=== PATIENT | female | born 2000 | race Caucasian/White ===

== ENCOUNTER 2022-06-02 02:01 | Emergency (ER) | payer OTHER, SELFPAY ==
[2022-06-02 02:02] VITALS: BP 128/80; PULSE 87; RESP 17; TEMP 36.8; O2SAT 97; BMI 40.4
--- NOTE | 2022-06-02 02:29 | EX.ED.UPPERE ---
HPI History of Present Illness Chief Complaint: Upper Extremity Injury Informant: patient Occured/Mechanism Mechanism/Context: Yes blunt trauma Onset/Context/Timing Onset: Today Context: Sudden Onset Timing: Continuous Quality of Pain: Aching Location: left hand fingers 2-4 Current Severity: Moderate Maximum Severity: Severe Worsened by: movement, palpation Relieved by: remaining still Associated Symptoms Associated Symptoms: Negative for Parasthesia or Weakness Narrative Narrative: Patient states she had sat down on the floor of her new apartment building here, she just recently moved here, because she was having some asthma symptoms after exerting herself. She had her outstretched hand behind her, someone opened the door that was nearby her hand, and her hand was injured by forcibly being stuck between the bottom of the door and the ground. [id number]. [facility] Medical History Anxiety Anxiety Asthma Depression GERD (gastroesophageal reflux disease) Kidney stones Migraines Allergy/AdvReac Type Severity Reaction Status Date / Time No Known Allergies Allergy Verified 06/02/22 02:08 Social History Smoking Status: Current every day smoker tobacco type: e-cigarettes ROS ROS ED Constitutional Constitutional ED: Denies chills or fever(s) Respiratory/Chest Respiratory/Chest: Reports wheezing; Denies cough Musculoskeletal Musculoskeletal: Reports extremity pain; Denies neck pain Integumentary Denies Abrasions, rash or wounds Neurologic Neurologic: Denies paresthesias or weakness EXAM Physical Exam Const Vital Signs: 06/02/22 02:02 Temperature 98.2 F Temperature Source Oral Pulse Rate 87 Respiratory Rate 17 Blood Pressure 128/80 H Blood Pressure Mean 96 Pulse Ox 97 Oxygen Delivery Method Room Air Positive well nourished, well developed and obese General Appearance ED: well developed and NAD Nutritional Appearance: obese Neck full ROM and supple Resp normal respiratory effort and clear to auscultation bilaterally Back/Spine normal ROM and normal to inspection Extremity Extremity Narrative: Very tender PIPJ left fingers 2-4. No deformities. Very limited range of motion due to pain, there is some swelling and ecchymosis but skin is intact. She is not able to display that the extensor mechanism or flexor tendons are intact because she will not move them but the other fingers move well. No tenderness at the MCPJ or anywhere proximal to this. No tenderness at the DIPJ or distal, there are no subungual hematomas. Neuro oriented x3, no focal motor deficits and no sensory deficits noted Sensorium / Orientation: alert Psych mental status grossly normal and thought process normal Skin no wounds Rashes: no rashes MDM MDM MDM Narrative Medical decision making narrative: Three-view x-ray series of the left hand on my interpretation is negative for any acute fractures. Radiology in agreement. Patient was reassured given some ibuprofen, ice pack, Zechariah wrap to use as needed, discharged stable condition. Discharge Plan Triage Chief Complaint: Upper Extremity Injury ED Provider: Saúl Munoz Dx/Rx/DC Orders Clinical Impression: Contusion of left hand including fingers Instructions: ED Hand Contusion Primary Care Provider: Care Physician,No Primary Referrals: Nora Riley [Non-Staff] - As Needed NOT,DEFINED [Non-Staff] - Disposition Disposition: Home, Self Care
--- NOTE | 2022-06-02 02:40 | RAD_ITS ---
INDICATION: Car door hand injury, pain third through fifth digits. Unable to straighten fourth digit. EXAMINATION/TECHNIQUE: X-RAY - LEFT XR Hand Min 3 Views COMPARISON: None. FINDINGS: SOFT TISSUES: Mild soft tissue swelling fourth digit. No radiopaque foreign body detected. BONES/JOINTS: No acute fracture or subluxation. Fourth digit remains slightly flexed. Otherwise, adequate alignment of osseous structures. Preservation of the joint space(s). No suspicious osseous lesion observed. RAD/Hand Min 3 Views IMPRESSION: Soft tissue swelling with no fracture or dislocation. Electronically Signed: Xander Singh MD at 2:56 EDT ,
[2022-06-02] MEDS: Ibuprofen 600 MG Tablet PO (03:10)
[2022-06-02 03:14] VITALS: BP 134/72; PULSE 74; RESP 17; O2SAT 98
== END 2022-06-02 03:14 | disposition home or self-care (01) ==
PROVIDERS: Emergency Provider Emergency Medicine; Visit Provider Emergency Medicine
DX: S60.222A Contusion of left hand, initial encounter (principal); Z68.41 Body mass index [BMI] 40.0-44.9, adult; F17.290 Nicotine dependence, other tobacco product, uncomplicated; J45.909 Unspecified asthma, uncomplicated; E66.9 Obesity, unspecified; W23.0XXA Caught, crushed, jammed, or pinched between moving objects, initial encounter
CPT/HCPCS: 73130; 99283

== ENCOUNTER 2022-07-02 21:05 | Emergency (ER) | payer OTHER, SELFPAY ==
[2022-07-02 21:06] VITALS: BP 127/93; PULSE 90; RESP 18; TEMP 36.8; O2SAT 99; BMI 39.9
--- NOTE | 2022-07-02 21:19 | ED.RN ---
PT STATED THAT SHE NEEDED TO LEAVE BECAUSE HER RIDE JUST TOLD HER THAT SHE DIDN'T NEED TO BE HERE. THIS RN NOTIFIED CHARGE NURSE AND REGISTRATION
== END 2022-07-02 21:18 | disposition left against medical advice (07) ==
LOC: ED 21:21
DX: Z53.21 Procedure and treatment not carried out due to patient leaving prior to being seen by health care provider (principal)
CPT/HCPCS: 99281

== ENCOUNTER 2022-07-17 07:36 | Emergency (ER) | payer SELFPAY ==
[2022-07-17 07:37] VITALS: BP 128/79; PULSE 78; RESP 20; TEMP 36.8; O2SAT 98; BMI 38.9
[2022-07-17 07:56] VITALS: BP 128/79; PULSE 78; RESP 20; TEMP 36.8; O2SAT 98
--- NOTE | 2022-07-17 08:26 | EX.ED.DYSGE1 ---
HPI History of Present Illness Chief Complaint: Flank Pain Informant: patient Onset/Context/Timing Onset: Today Context: Sudden Onset Timing: Continuous Quality: Sharp, aching, dull, cramping, and pressure Location: Left flank and low back Worsened by: Laying completely flat, sitting straight up Relieved by: Reclined position Narrative Narrative: Patient presents with left flank and back pain that began today. Patient states it began rather suddenly. Patient states it has been constant. Patient describes her pain as sharp, aching, dull, cramping, and pressure. Patient states it is mainly on the left flank and low back. Patient states her left flank area feels swollen. Patient states it is worse with laying completely flat and sitting straight up. Patient states it is better in a reclined position. Patient admits to some urinary frequency. Patient admits to some nausea and vomiting. 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 GERD (gastroesophageal reflux disease) Kidney stones Migraines Home Medications cephalexin 500 mg capsule 500 mg PO Q6 #20 CAPSULES 07/17/22 [Rx Last Taken Unknown] Allergy/AdvReac Type Severity Reaction Status Date / Time No Known Allergies Allergy Verified 07/17/22 07:37 Social History Smoking Status: Former smoker ROS ROS ED Constitutional Constitutional ED: Denies chills or fever(s) Eyes Eyes: Denies blurry vision or change in vision ENT ENT ED: Denies rhinorrhea or sore throat Cardiovascular Cardiovascular: Denies chest pain or palpitations Respiratory/Chest Respiratory/Chest: Denies cough or dyspnea Gastrointestinal Gastrointestinal: Reports nausea and vomiting Genitourinary Genitourinary ED: Reports urinary frequency; Denies dysuria or hematuria Musculoskeletal Musculoskeletal: Reports back pain; Denies neck pain Integumentary Denies abscess or rash Neurologic Neurologic: Reports headache(s); Denies weakness Allergic/Immunologic Allergic/Immunologic ED: Denies mouth swelling or urticaria EXAM Physical Exam Const Vital Signs: 07/17/22 07:37 07/17/22 07:56 07/17/22 07:56 Temperature 98.2 F 98.2 F Temperature Source Temporal Temporal Pulse Rate 78 78 Respiratory Rate 20 H 20 H Respiratory Effort Normal Non-Labored Respiratory Pattern Normal Blood Pressure 128/79 H 128/79 H Blood Pressure Mean 95 95 Pulse Ox 98 98 Oxygen Delivery Method Room Air Room Air 07/17/22 08:38 Temperature 98.2 F Temperature Source Temporal Pulse Rate 78 Respiratory Rate 20 H Respiratory Effort Respiratory Pattern Blood Pressure 128/79 H Blood Pressure Mean 95 Pulse Ox 98 Oxygen Delivery Method Room Air Positive well nourished, well developed and obese General Appearance ED: well developed and NAD Nutritional Appearance: obese HEENT Reports moist mucous membranes Neck supple and no JVD Resp normal respiratory effort and clear to auscultation bilaterally Cardio regular rate, regular rhythm and no murmurs GI normal to inspection, nondistended, normoactive bowel sounds and non-tender Palpation: soft Back/Spine General Back: CVA tenderness left Extremity normal to inspection General Extremety ED: Negative for edema or tenderness General Extremity: Negative for edema Neuro oriented x3, CN's II-XII intact bilaterally and no sensory deficits noted Sensorium / Orientation: alert Motor Exam: strength 5/5 throughout Psych mental status grossly normal Skin no rashes or lesions noted MDM MDM MDM Narrative Medical decision making narrative: Patient was given Toradol, and Zofran. CBC was within normal limits. Basic metabolic profile was essentially within normal limits. Serum hCG was negative. CT scan of the abdomen and pelvis was obtained. There is a 5.2 x 4.9 x 4.6 cystic mass in the right pelvis. There is no acute abnormality noted. This was interpreted by the radiologist and reviewed by myself. Urinalysis shows a leukocyte esterases of 100 with 10-25 white blood cells and 1+ bacteria. Urine culture was ordered. Patient was given a dose of Rocephin here. Patient was given a prescription for Keflex. Patient was instructed to follow-up with her primary care physician in 5 to 7 days. Patient understood and was agreeable with the plan. All questions were answered. Lab Data Attestation: I reviewed the patient's lab results. Labs: Laboratory Results - last 24 hr 07/17/22 07/17/22 07/17/22 08:15 08:15 08:15 WBC 9.2 RBC 4.93 Hgb 13.5 Hct 41.8 MCV 84.8 MCH 27.4 MCHC 32.3 RDW Std Deviation 41.5 RDW Coeff of Leoncio 13.6 Plt Count 324 MPV 10.4 Immature Gran % (Auto) 0.200 Neut % (Auto) 51.9 Lymph % (Auto) 36.1 Woodward % (Auto) 10.0 Eos % (Auto) 1.6 Baso % (Auto) 0.2 Absolute Neuts (auto) 4.8 Absolute Lymphs (auto) 3.33 Nucleated RBC % 0 Sodium 140 Potassium 4.2 Chloride 110 H Carbon Dioxide 26.0 Anion Gap 4 L BUN 16 Creatinine 0.91 Estim Creat Clear Calc 87.26 Est GFR (MDRD) Af Amer 100 Est GFR (MDRD) Non-Af 82 BUN/Creatinine Ratio 17.6 Glucose 96 Calcium 9.4 Serum , Qual NEGATIVE Urine Color Urine Clarity Urine pH Ur Specific [place] Urine Protein Urine Glucose (UA) Urine Ketones Urine Occult Blood Urine Nitrite Urine Bilirubin Urine Urobilinogen Ur Leukocyte Esterase Urine RBC Urine WBC Ur Squamous Epith Cells Urine Bacteria Urine Mucus 07/17/22 08:15 WBC RBC Hgb Hct MCV MCH MCHC RDW Std Deviation RDW Coeff of Leoncio Plt Count MPV Immature Gran % (Auto) Neut % (Auto) Lymph % (Auto) Woodward % (Auto) Eos % (Auto) Baso % (Auto) Absolute Neuts (auto) Absolute Lymphs (auto) Nucleated RBC % Sodium Potassium Chloride Carbon Dioxide Anion Gap BUN Creatinine Estim Creat Clear Calc Est GFR (MDRD) Af Amer Est GFR (MDRD) Non-Af BUN/Creatinine Ratio Glucose Calcium Serum , Qual Urine Color Yellow Urine Clarity Sl. Cloudy Urine pH 5.0 Ur Specific [place] 1.020 Urine Protein Negative Urine Glucose (UA) Normal Urine Ketones Negative Urine Occult Blood Negative Urine Nitrite Negative Urine Bilirubin Negative Urine Urobilinogen Normal Ur Leukocyte Esterase 100 H Urine RBC 0 SEEN Urine WBC 10-25 SEEN Ur Squamous Epith Cells 0-5 SEEN Urine Bacteria 1+ Urine Mucus 0 SEEN Radiography Diagnostic Testing: Clinical Impression(s) from Imaging Studies Abdomen/Pelvis CT 07/17/22 08:30 IMPRESSION: 5.2 cm x 4.9 cm x 4.6 cm round cystic mass in the pelvis as described. Correlation with ultrasound is recommended. Nonobstructive 2.5 mm calculus in the lower pole calyx of the left kidney. Electronically Signed: Dru Valencia MD at 9:37 EDT , Discharge Plan Triage Chief Complaint: Flank Pain ED Provider: Jann Jackman Dx/Rx/DC Orders Clinical Impression: Cyst of right ovary, Urinary tract infection Instructions: ED Ovarian Cyst, ED Cystitis Female Adult Prescriptions: New cephalexin [cephalexin] 500 MG capsule 500 mg PO Q6 Qty: 20 0RF Stand Alone Forms: ED Work / School Excuse Primary Care Provider: Care Physician,No Primary Referrals: Harsh Mccarthy MD [Med Staff - [employer] Sl[employer] Casting Machine Operator] - 5-7 Days Care Physician,No Primary [Primary Care Provider] - Disposition Disposition: Home, Self Care Discharge Date/Time: 07/17/22 11:51
--- NOTE | 2022-07-17 08:30 | CT_ITS ---
STUDY: CT ABDOMEN AND PELVIS WITHOUT CONTRAST REASON FOR EXAM: Female, 22 years old. Left flank pain. Nausea and vomiting. History of kidney stones. RADIATION DOSAGE (If Supplied By Facility): CTDIvol = ( 20.79 ) mGy, DLP = ( 1085.73 ) mGycm TECHNIQUE: Transaxial images were obtained from the dome of the diaphragm to the symphysis pubis without oral contrast, and without intravenous contrast. Sagittal and coronal images were reconstructed. Individualized dose optimization techniques were used for this CT. COMPARISON: None. FINDINGS: The visualized lung bases are unremarkable. The visualized portions of the heart are within normal limits. Normal liver. Normal gallbladder and extrahepatic biliary system. Normal spleen. Normal pancreas. Normal bilateral adrenal glands. Normal right kidney. There is a 2.5 mm nonobstructive calculus in the lower pole calyx of the left kidney. There is a small hiatal hernia. Normal small intestine. Normal colon. The appendix is visualized and appears normal. Normal abdominal aorta. Normal inferior vena cava. Normal retroperitoneum. Normal urinary bladder. There is a 5.2 cm x 4.9 cm x 4.6 cm predominantly cystic mass in the right side of the pelvis. This extends into the left hemipelvis as well. Correlation with ultrasound is recommended for further evaluation. Tiny amount of free fluid is seen in the cul-de-sac. Small benign-appearing inguinal lymph nodes. Several small lymph nodes are seen in the mesenteric fat in the right lower quadrant suggestive of mesenteric adenitis. Normal osseous structures. CT/Abdomen/Pelvis without Cont IMPRESSION: 5.2 cm x 4.9 cm x 4.6 cm round cystic mass in the pelvis as described. Correlation with ultrasound is recommended. Nonobstructive 2.5 mm calculus in the lower pole calyx of the left kidney. Electronically Signed: Dru Valencia MD at 9:37 EDT ,
[2022-07-17 08:37] LABS: Absolute Lymphocyte Count 3.33 X10^3/uL (0.83-4.51); Absolute Neutrophil Count 4.8 X10^3/uL (2.0-7.7); Basophil# 0.02 X10^3/uL; Basophil% 0.2 % (0-1); Eosinophil# 0.15 X10^3/uL; Eosinophils% 1.6 % (0-5); Hematocrit 41.8 % (37-47); Hemoglobin 13.5 g/dL (12.0-15.0); Lymphocyte # 3.33 X10^3/ul (0.83-4.51); Lymphocyte % 36.1 % (19-41); Mean Corp Hgb Conc 32.3 g/dL (32-36); Mean Corpuscular Hgb 27.4 pg (27.0-32.0); Mean Corpuscular Volume 84.8 fL (81-99); Mean Platelet Vol. 10.4 fl (6.2-12.0); Monocyte# 0.92 X10^3/uL; Mucous, Urine 0 SEEN /hpf (<or=2+); NRBC Flagged by Analyzer 0 % (0-5); Neutrophil # 4.79 X10^3/uL (2.7-7.7); Neutrophil % 51.9 % (47-70); Platelet Count 324 K/mm3 (150-450); RBC Distribution Width CV 13.6 % (11.6-14.6); RBC Distribution Width SD 41.5 fl (35.1-43.9); Red Blood Cells-Urine 0 SEEN /hpf (0-5); Red Blood Count 4.93 M/mm3 (4.2-5.4); White Blood Count 9.2 K/mm3 (4.4-11.0)
[2022-07-17] MEDS: Ketorolac 30 MG/ML Syringe IV (08:37)
[2022-07-17] MEDS: Ondansetron 4 MG/2 ML Vial IV (08:37)
[2022-07-17 08:38] VITALS: BP 128/79; PULSE 78; RESP 20; TEMP 36.8; O2SAT 98
[2022-07-17 08:40] LABS: Color, Urine Yellow (Yellow); Glucose, Dipstick Normal (Normal); Ketone-Dipstick Negative (Negative); Leukocyte Esterase-Dipstick 100 /ul (Negative); Nitrite-Dipstick Negative (Negative); Occult Blood-Urine Negative /ul (Negative); Protein-Dipstick Negative (Negative); Urine Bilirubin Dipstick Negative (Negative); Urine Clarity Sl. Cloudy (Clear); Urine Urobilinogen Normal (Normal)
[2022-07-17 08:47] LABS: Bacteria 1+ /hpf (None Seen); Squamous Epithelial Cells - UA 0-5 SEEN /hpf (5-10); White Blood Cells 10-25 SEEN /hpf (0-5)
[2022-07-17 08:48] LABS: Internal QC Validated? YES +Cl - CLEAR BKGD; Pregnancy, Serum, hCG Quali. NEGATIVE Negative
[2022-07-17 08:50] LABS: Anion Gap 4 (5-15); BUN 16 mg/dL (7-18); BUN/Creat Ratio 17.6 RATIO (10-20); Calcium,Total 9.4 mg/dL (8.5-10.1); Chloride 110 mmol/L (98-107); Creatinine, Serum 0.91 mg/dL (0.55-1.02); EST Glomerular Filtration Rate 82 mL/min (>60); Est Glom Filt Rate - Afr Amer 100 mL/min (>60); Estimated Creatinine Clearance 87.26 ml/min; Glucose 96 mg/dL (74-106); Potassium 4.2 mmol/L (3.5-5.1); Sodium Level 140 mmol/L (136-145)
[2022-07-17] MEDS: Ceftriaxone 1 GM/50 ML BAG IV (09:25)
== END 2022-07-17 11:51 | disposition home or self-care (01) ==
PROVIDERS: Emergency Provider Emergency Medicine; Visit Provider Emergency Medicine
DX: N39.0 Urinary tract infection, site not specified (principal); N83.201 Unspecified ovarian cyst, right side; R11.2 Nausea with vomiting, unspecified; J45.909 Unspecified asthma, uncomplicated; R35.0 Frequency of micturition; E66.9 Obesity, unspecified; M54.9 Dorsalgia, unspecified; Z87.891 Personal history of nicotine dependence
CPT/HCPCS: 74176; 80048; 81001; 84703; 85025; 87086; 87088; 96365; 96375; 99284; J7030; A4216; J2405

== ENCOUNTER 2022-08-26 13:33 | Emergency (ER) | payer SELFPAY ==
[2022-08-26 13:34] VITALS: BP 139/90; PULSE 102; RESP 14; TEMP 36; O2SAT 100; BMI 38.1
--- NOTE | 2022-08-26 15:18 | EDS_ITS ---
HPI History of Present Illness Chief Complaint: General Illness Detail of Chief Complaint: Not feeling well since this morning Informant: patient Narrative Narrative: Patient presents to the emergency department with complaint of waking up feeling ill this morning. Patient complains of headache and nausea and cough and generally feeling very fatigued. Patient states that one of her coworkers at work was working while she had a fever but no known diagnosis. Patient denies urinary symptoms. Patient denies abdominal pain. Patient does have a cough that is dry. Patient has a headache. She denies sore throat or body aches. 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 GERD (gastroesophageal reflux disease) Kidney stones Migraines Allergy/AdvReac Type Severity Reaction Status Date / Time No Known Allergies Allergy Verified 08/26/22 13:34 Social History Smoking Status: Former smoker ROS ROS ED Review of Systems ROS Unobtainable: other Constitutional Constitutional ED: Reports lethargy; Denies chills, fever(s), sweats or weight loss Eyes Eyes: Denies blurry vision, change in vision or diplopia ENT ENT ED: Denies rhinorrhea or sore throat Cardiovascular Cardiovascular: Denies chest pain, orthopnea or racing heartbeat Respiratory/Chest Respiratory/Chest: Reports cough; Denies dyspnea, dyspnea on exertion, orthopnea or sputum Gastrointestinal Gastrointestinal: Reports nausea; Denies abdominal pain, diarrhea or vomiting Genitourinary Genitourinary ED: Denies dysuria, hematuria or urinary frequency Musculoskeletal Musculoskeletal: Denies arthralgias, back pain, myalgias or neck pain Integumentary Denies abscess, Abrasions or rash Neurologic Neurologic: Reports headache(s) and weakness Psychiatric Psychiatric: Denies anxiety, depression or suicidal thoughts Endocrine Endocrinology: Denies polydipsia, polyphagia or polyuria Hematologic/Lymphatic Hematologic/Lymphatic: Denies easy bleeding, easy bruising or lymphadenopathy Allergic/Immunologic Allergic/Immunologic ED: Denies mouth swelling, tongue swelling or urticaria EXAM Physical Exam Const Vital Signs: 08/26/22 13:34 Temperature 96.8 F L Temperature Source Temporal Pulse Rate 102 H Respiratory Rate 14 Blood Pressure 139/90 H Blood Pressure Mean 106 Pulse Ox 100 Oxygen Delivery Method Room Air Positive well nourished and well developed General Appearance ED: well developed and NAD HEENT Reports TM's clear and moist mucous membranes normocephalic and atraumatic; Negative for trauma or tenderness Tympanic Membrane ED: Yes TM's clear Eyes PERRL and EOMs intact bilaterally General Eye ED: Negative for pale conjunctiva or scleral icterus Neck no lymphadenopathy, supple and no JVD General: Negative for tenderness Chest Wall inspection of chest normal and palpation of chest normal Chest: Negative for tenderness Resp normal respiratory effort and clear to auscultation bilaterally Effort and Inspection: Negative for respiratory distress or pain with movement Auscultation: Negative for rhonchi, wheezes or diminished lung sounds Cardio regular rhythm, S1 normal heart sound, S2 normal heart sound and no murmurs Rate: tachycardic Peripheral Pulses: pulses 2+ throughout GI normal to inspection, nondistended, normoactive bowel sounds, soft to palpation, non-tender, non-distended and no masses Back/Spine no CVA tenderness and no thoracic nor lumbar tenderness Extremity normal to inspection General Extremety ED: Negative for edema General Extremity: Negative for edema Neuro oriented x3, CN's II-XII intact bilaterally, no sensory deficits noted and gait normal Sensorium / Orientation: awake, alert, oriented to person, oriented to place and oriented to time Motor Exam: strength 5/5 throughout and strength abnormal Psych mental status grossly normal Skin no rashes or lesions noted and no wounds MDM MDM MDM Narrative Medical decision making narrative: Patient was ordered rapid flu and influenza screens. Patient would like to know if she has either these so she can advise work. Patient was negative for COVID and influenza. I did advise her that since her symptoms just darted today she may not test positive for COVID if this was COVID for a couple of days pote ntially. Patient advised to repeat a COVID test in 2 days at home. I think patient has a viral upper respiratory infection at this point. Patient advised to return if increasing shortness of breath or condition should worsen anyway. Lab Data Attestation: I reviewed the patient's lab results. Discharge Plan Triage Chief Complaint: General Illness Other Complaint: Upper Extremity Injury ED Provider: Belem Pineda Dx/Rx/DC Orders Clinical Impression: Viral URI Instructions: ED URI, Viral, No Abx (Adult) Primary Care Provider: Care Physician,No Primary Referrals: Sil Stevenson MD [Med Staff - Tea Taster] - 3-5 Days Care Physician,No Primary [Primary Care Provider] - Disposition Disposition: Home, Self Care
--- NOTE | 2022-08-26 16:32 | CM.ED ---
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 SW requested permission to have a conversation with patient with their guest present, patient agreed. SW provided patient with the Medicaid application with instructions attached. SW inquired about other current needs for resources. Patient denied any other needs. SW remains available if needs arise. Lani Rollins MSW, ESTEFANI
[2022-08-26 17:03] VITALS: BP 126/57; PULSE 76; RESP 14; O2SAT 99
== END 2022-08-26 17:03 | disposition home or self-care (01) ==
PROVIDERS: Emergency Provider Emergency Medicine; Visit Provider Emergency Medicine
DX: J06.9 Acute upper respiratory infection, unspecified (principal); R51.9 Headache, unspecified; Z87.891 Personal history of nicotine dependence; Z20.822 Contact with and (suspected) exposure to COVID-19
CPT/HCPCS: 87428; 99282

== ENCOUNTER 2022-09-04 04:58 | Emergency (ER) | payer SELFPAY ==
[2022-09-04 04:59] VITALS: BP 118/82; PULSE 85; RESP 18; TEMP 35.8; O2SAT 98; BMI 38.4
--- NOTE | 2022-09-04 05:15 | RAD_ITS ---
STUDY: X-RAY CHEST REASON FOR EXAM: Female, 22 years old. cough -- covid+ day 7 TECHNIQUE: PA and lateral COMPARISON: None. FINDINGS: LUNGS: No consolidation. No pneumothorax. MEDIASTINUM: Unremarkable. CARDIAC SILHOUETTE: Not enlarged. BONES AND SOFT TISSUES: No acute abnormalities RAD/Chest PA and Lateral IMPRESSION: No evidence of active intrathoracic disease. Electronically Signed: Alida Ritter MD at 5:36 EST ,
--- NOTE | 2022-09-04 05:15 | EX.ED.DYSGE1 ---
HPI History of Present Illness Chief Complaint: General Illness Informant: patient and spouse/S.O. Narrative Narrative: Reports positive COVID test a week ago today. Patient symptoms 9 days ago cough myalgias. She is seen in the ED had rapid COVID and flu that was negative. She is COVID vaccinated with booster. No COVID infections in the past. States symptoms were improving however today increasing congestion cough with chest tightness. No fevers. Remote tobacco. 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 GERD (gastroesophageal reflux disease) Kidney stones Migraines Home Medications NK 09/04/22 [History Last Taken Unknown] Allergy/AdvReac Type Severity Reaction Status Date / Time No Known Allergies Allergy Verified 09/04/22 05:03 Social History Smoking Status: Former smoker ROS ROS ED Constitutional Constitutional ED: Denies chills, fever(s) or sweats Eyes Eyes: Denies change in vision ENT ENT ED: Reports other Details: Nasal congestion ; Denies dysphagia or sore throat Cardiovascular Cardiovascular: Denies chest pain, leg edema, palpitations or racing heartbeat Respiratory/Chest Respiratory/Chest: Reports cough; Denies dyspnea or dyspnea on exertion Gastrointestinal Gastrointestinal: Denies abdominal pain, diarrhea, nausea or vomiting Genitourinary Genitourinary ED: Denies dysuria, hematuria or urinary frequency Musculoskeletal Musculoskeletal: Denies back pain, extremity pain or neck pain Integumentary Denies rash or wounds Neurologic Neurologic: Denies headache(s), paresthesias or weakness EXAM Physical Exam Const Vital Signs: 09/04/22 04:59 09/04/22 04:59 Temperature 96.5 F L Temperature Source Temporal Pulse Rate 85 Respiratory Rate 18 Respiratory Effort Short of Breath Respiratory Pattern Normal Blood Pressure 118/82 H Blood Pressure Mean 94 Pulse Ox 98 Oxygen Delivery Method Room Air Positive well nourished and well developed General Appearance ED: well developed and NAD HEENT Reports moist mucous membranes normocephalic and atraumatic Eyes PERRL, EOMs intact bilaterally and conjunctivae normal General Eye ED: Yes normal appearance of both eyes Neck no lymphadenopathy and supple General: Negative for tenderness Chest Wall Chest: Negative for tenderness Resp normal respiratory effort and normal air movement Effort and Inspection: symmetric chest movement; Negative for respiratory distress Cardio regular rate, regular rhythm and no murmurs Peripheral Pulses: pulses 2+ throughout GI normal to inspection, nondistended, normoactive bowel sounds and non-tender Palpation: Negative for guarding or rebound tenderness present Back/Spine no CVA tenderness and no thoracic nor lumbar tenderness Extremity normal to inspection General Extremety ED: Negative for edema or tenderness General Extremity: Negative for edema Neuro oriented x3 and no sensory deficits noted Sensorium / Orientation: awake and alert Skin no rashes or lesions noted and no wounds MDM MDM MDM Narrative Medical decision making narrative: Patient vital signs stable pulse ox 98% on room air. EKG normal two-view chest x-ray reviewed by myself and read by radiology shows no acute process. PERC criteria negative. Discussed adjunct therapies with patient help with symptoms. Discussed picking up a pulse oximeter to monitor her oxygen status. Return precaution discussed. All questions were answered. Radiography Diagnostic Testing: Clinical Impression(s) from Imaging Studies Chest X-Ray 09/04/22 05:15 IMPRESSION: No evidence of active intrathoracic disease. Electronically Signed: Alida Ritter MD at 5:36 EST , EKG Initial EKG: Attestation: I personally reviewed and interpreted this EKG as follows: Comments: Sinus rate of 85, no ST or T wave changes. Discharge Plan Triage Chief Complaint: General Illness ED Provider: Brady Toledo Dx/Rx/DC Orders Clinical Impression: COVID-19, Viral illness, Dyspnea Instructions: Coronavirus Disease 2019 (COVID-19): Caring for Yourself or Others, ED Dyspnea Prescriptions: No Action NK Primary Care Provider: Care Physician,No Primary Referrals: Shireen Avina MD [Med Staff - Radiologic Technology Program Director] - 1-2 Weeks Care Physician,No Primary [Primary Care Provider] - Activity Restrictions/Additional Instructions: EKG, chest x-ray negative. lockstitch cup setter pulse oximeter monitor oxygen status. Vapor rubs and humidifier will help with symptoms. Return if any worsening symptoms. Disposition Disposition: Home, Self Care
== END 2022-09-04 05:46 | disposition home or self-care (01) ==
PROVIDERS: Emergency Provider Emergency Medicine; Visit Provider Emergency Medicine
DX: U07.1 COVID-19 (principal); B34.9 Viral infection, unspecified; Z87.891 Personal history of nicotine dependence; R06.00 Dyspnea, unspecified
CPT/HCPCS: 71046; 93005; 99282

== ENCOUNTER 2022-09-17 19:37 | Emergency (ER) | payer SELFPAY ==
[2022-09-17 19:37] VITALS: BP 133/87; PULSE 116; RESP 16; TEMP 36.4; O2SAT 97; BMI 39.9
--- NOTE | 2022-09-17 19:48 | EDS_ITS ---
HPI History of Present Illness Chief Complaint: Sore Throat Detail of Chief Complaint: Sore throat, cough, headache, body aches Informant: patient Onset/Context/Timing Onset: Today Context: Gradual Onset Current Severity: Moderate Maximum Severity: Moderate Narrative Narrative: Patient presents secondary to cough, congestion, sore throat that started this morning. She states she felt warm but when she checked her temperature she was not running a fever. She is coughing to the point of gagging. Significant other had similar symptoms. Patient had COVID 3 weeks ago. 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 GERD (gastroesophageal reflux disease) Kidney stones Migraines Home Medications NK 09/04/22 [History Last Taken Unknown] Allergy/AdvReac Type Severity Reaction Status Date / Time No Known Allergies Allergy Verified 09/17/22 19:39 Social History Smoking Status: Former smoker ROS ROS ED Constitutional Constitutional ED: Reports chills; Denies fever(s) Eyes Eyes: Denies change in vision or discharge from eye(s) ENT ENT ED: Reports sore throat and other Details: Congestion ; Denies discharge from eye(s) or rhinorrhea Cardiovascular Cardiovascular: Denies chest pain or palpitations Respiratory/Chest Respiratory/Chest: Reports cough and dyspnea Gastrointestinal Gastrointestinal: Reports nausea; Denies abdominal pain, diarrhea or vomiting Genitourinary Genitourinary ED: Denies dysuria Musculoskeletal Musculoskeletal: Reports myalgias; Denies back pain or extremity pain Integumentary Denies Abrasions or rash Neurologic Neurologic: Denies headache(s) or weakness Psychiatric Psychiatric: Denies anxiety or depression Allergic/Immunologic Allergic/Immunologic ED: Denies lip swelling or urticaria EXAM Physical Exam Const Vital Signs: 09/17/22 19:37 Temperature 97.6 F L Temperature Source Temporal Pulse Rate 116 H Respiratory Rate 16 Blood Pressure 133/87 H Blood Pressure Mean 102 Pulse Ox 97 Oxygen Delivery Method Room Air Positive well nourished and well developed General Appearance ED: well developed HEENT Reports normocephalic and head/scalp atraumatic Eyes PERRL and EOMs intact bilaterally Neck supple Chest Wall inspection of chest normal and palpation of chest normal Resp normal respiratory effort and clear to auscultation bilaterally Cardio regular rhythm Rate: tachycardic GI normal to inspection, nondistended, normoactive bowel sounds Palpation: soft Extremity normal to inspection Neuro oriented x3 and no sensory deficits noted Sensorium / Orientation: alert Motor Exam: strength 5/5 throughout Psych mental status grossly normal Skin no rashes or lesions noted MDM MDM MDM Narrative Medical decision making narrative: Swabs for COVID and influenza are sent. Rapid strep obtained. Patient given a liter IV fluids along with Toradol and Zofran. Treatment and Re-Evaluation Narrative: COVID and influenza swabs are negative. Rapid strep test is negative. On repeat evaluation she is resting comfortably. She states she has DayQuil and NyQuil that she can use at home to help control her cough. Return instructions given. Discharge Plan Triage Chief Complaint: Sore Throat ED Provider: Jessica Sanon Dx/Rx/DC Orders Clinical Impression: Viral syndrome Instructions: ED Viral Syndrome (Adult) Prescriptions: No Action NK Primary Care Provider: Care Physician,No Primary Referrals: Edwina Hernandez MD [Med Staff - Director Corporate Communications] - As Needed Care Physician,No Primary [Primary Care Provider] - Disposition Disposition: Home, Self Care
[2022-09-17] MEDS: Ondansetron 4 MG/2 ML Vial IV (19:58)
[2022-09-17] MEDS: Ketorolac 30 MG/ML Syringe IV (20:00)
[2022-09-17] MEDS: 0.9% Normal Saline 1,000 ML 1000 ML IV (20:04)
[2022-09-17 21:51] VITALS: BP 133/87; PULSE 116; RESP 16; O2SAT 97
== END 2022-09-17 21:54 | disposition home or self-care (01) ==
PROVIDERS: Emergency Provider Emergency Medicine; Visit Provider Emergency Medicine
DX: B34.9 Viral infection, unspecified (principal); Z87.891 Personal history of nicotine dependence; Z86.16 Personal history of COVID-19
CPT/HCPCS: 87428; 87880; 96361; 96374; 96375; 99283; J7030; A4216; J2405

== ENCOUNTER 2022-09-19 12:11 | Emergency (ER) | payer SELFPAY ==
[2022-09-19 12:13] VITALS: BP 116/76; PULSE 109; RESP 18; TEMP 37.2; O2SAT 98; BMI 39.9
--- NOTE | 2022-09-19 13:24 | EX.ED.DYSGE1 ---
HPI History of Present Illness Chief Complaint: General Illness Detail of Chief Complaint: Cough and fever Informant: patient Narrative Narrative: Patient presents the emergency department complaint of a cough and fever that started 2 days ago. Patient states that her also was ill with similar type illness and he was seen several days ago in the emergency department tested positive for influenza. Patient states she last took ibuprofen last evening and her temperatures been up and down. Patient denies any shortness of breath. She does complain of body aches and headache. 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 GERD (gastroesophageal reflux disease) Kidney stones Migraines Home Medications NK 09/04/22 [History Last Taken Unknown] Allergy/AdvReac Type Severity Reaction Status Date / Time No Known Allergies Allergy Verified 09/19/22 12:15 Social History Smoking Status: Former smoker ROS ROS ED Review of Systems ROS Unobtainable: other Constitutional Constitutional ED: Reports fever(s) and lethargy; Denies chills, sweats or weight loss Eyes Eyes: Denies blurry vision, change in vision or diplopia ENT ENT ED: Denies rhinorrhea or sore throat Cardiovascular Cardiovascular: Denies chest pain, orthopnea or racing heartbeat Respiratory/Chest Respiratory/Chest: Reports cough; Denies dyspnea, dyspnea on exertion, orthopnea or sputum Gastrointestinal Gastrointestinal: Denies abdominal pain, diarrhea, nausea or vomiting Genitourinary Genitourinary ED: Denies dysuria, hematuria or urinary frequency Musculoskeletal Musculoskeletal: Reports myalgias; Denies arthralgias, back pain or neck pain Integumentary Denies abscess, Abrasions or rash Neurologic Neurologic: Reports headache(s); Denies weakness Psychiatric Psychiatric: Denies anxiety, depression or suicidal thoughts Endocrine Endocrinology: Denies polydipsia, polyphagia or polyuria Hematologic/Lymphatic Hematologic/Lymphatic: Denies easy bleeding, easy bruising or lymphadenopathy Allergic/Immunologic Allergic/Immunologic ED: Denies mouth swelling, tongue swelling or urticaria EXAM Physical Exam Const Vital Signs: 09/19/22 12:13 09/19/22 13:23 Temperature 99.0 F Temperature Source Temporal Pulse Rate 109 H Respiratory Rate 18 Respiratory Effort Normal Respiratory Pattern Normal Blood Pressure 116/76 Blood Pressure Mean 89 Pulse Ox 98 Oxygen Delivery Method Room Air Positive well nourished and well developed General Appearance ED: well developed and NAD HEENT Reports TM's clear and moist mucous membranes normocephalic and atraumatic; Negative for trauma or tenderness Tympanic Membrane ED: Yes TM's clear Eyes PERRL and EOMs intact bilaterally General Eye ED: Negative for pale conjunctiva or scleral icterus Neck no lymphadenopathy, supple and no JVD General: Negative for tenderness Chest Wall inspection of chest normal and palpation of chest normal Chest: Negative for tenderness Resp normal respiratory effort and clear to auscultation bilaterally Effort and Inspection: Negative for respiratory distress or pain with movement Auscultation: Negative for rhonchi, wheezes or diminished lung sounds Cardio regular rate, regular rhythm, S1 normal heart sound, S2 normal heart sound and no murmurs Peripheral Pulses: pulses 2+ throughout GI normal to inspection, nondistended, normoactive bowel sounds, soft to palpation, non-tender, non-distended and no masses Back/Spine no CVA tenderness and no thoracic nor lumbar tenderness Extremity normal to inspection General Extremety ED: Negative for edema General Extremity: Negative for edema Neuro oriented x3, CN's II-XII intact bilaterally, no sensory deficits noted and gait normal Sensorium / Orientation: awake, alert, oriented to person, oriented to place and oriented to time Motor Exam: strength 5/5 throughout and strength abnormal Psych mental status grossly normal Skin no rashes or lesions noted and no wounds MDM MDM MDM Narrative Medical decision making narrative: Patient with clinical symptoms of influenza. Her tested positive for influenza a several days ago. At this point she is 2 days into her symptoms and would qualify for Tamiflu but she has no insurance and does not want the medication after discussing risk benefit. Patient does not anything for cough. At this point I do not feel any further diagnostics are indicated I suspect patient has influenza. Patient will drink tea and use honey to help with her cough. Patient advised to return if increased difficulty breathing or condition should worsen. Patient given referral to primary care physician for follow-up. Discharge Plan Triage Chief Complaint: General Illness ED Provider: Belem Pineda Dx/Rx/DC Orders Clinical Impression: Influenza Instructions: ED Influenza (Adult) Prescriptions: No Action NK Primary Care Provider: Care Physician,No Primary Referrals: Sil Stevenson MD [Med Staff - Revolving Inventory Clerk] - 3-5 Days Care Physician,No Primary [Primary Care Provider] - Disposition Disposition: Home, Self Care
--- NOTE | 2022-09-19 13:26 | NURSING ---
patient declined nasal swab
[2022-09-19 13:33] VITALS: BP 140/88; O2SAT 97
== END 2022-09-19 13:33 | disposition home or self-care (01) ==
LOC: ED 13:32
PROVIDERS: Emergency Provider Emergency Medicine; Visit Provider Emergency Medicine
DX: J11.1 Influenza due to unidentified influenza virus with other respiratory manifestations (principal); J45.909 Unspecified asthma, uncomplicated; Z87.891 Personal history of nicotine dependence
CPT/HCPCS: 99282

== ENCOUNTER 2022-10-21 02:12 | Emergency (ER) | payer SELFPAY ==
[2022-10-21 02:13] VITALS: BP 131/82; PULSE 112; RESP 16; TEMP 36.2; O2SAT 97; BMI 38.7
--- NOTE | 2022-10-21 02:24 | EDS_ITS ---
HPI History of Present Illness Chief Complaint: Sore Throat Informant: patient Onset/Context/Timing Onset: Yesterday Context: Gradual Onset Current Severity: Moderate Maximum Severity: Moderate Narrative Narrative: Patient presents secondary to sore throat and hoarse voice. She states symptoms started last evening and progressed throughout her night at work. She has had a dry cough. She does not know if she is had a fever. She tried drinking warm tea with honey without improvement in her symptoms. 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 GERD (gastroesophageal reflux disease) Kidney stones Migraines Home Medications NK 09/04/22 [History Last Taken Unknown] Allergy/AdvReac Type Severity Reaction Status Date / Time kiwi Allergy Angioedema Verified 10/21/22 02:13 pineapple Allergy Angioedema Verified 10/21/22 02:13 Social History Smoking Status: Current every day smoker tobacco type: cigarettes and e- cigarettes ROS ROS ED Constitutional Constitutional ED: Denies chills or fever(s) Eyes Eyes: Denies change in vision or discharge from eye(s) ENT ENT ED: Reports sore throat; Denies discharge from eye(s) or rhinorrhea Cardiovascular Cardiovascular: Denies chest pain or palpitations Respiratory/Chest Respiratory/Chest: Reports cough; Denies dyspnea Gastrointestinal Gastrointestinal: Denies abdominal pain, diarrhea, nausea or vomiting Genitourinary Genitourinary ED: Denies difficulty urinating or dysuria Musculoskeletal Musculoskeletal: Denies back pain or extremity pain Integumentary Denies Abrasions or rash Neurologic Neurologic: Denies headache(s) Psychiatric Psychiatric: Denies anxiety or depression Allergic/Immunologic Allergic/Immunologic ED: Denies lip swelling or urticaria EXAM Physical Exam Const Vital Signs: 10/21/22 02:13 Temperature 97.1 F L Temperature Source Temporal Pulse Rate 112 H Respiratory Rate 16 Blood Pressure 131/82 H Blood Pressure Mean 98 Pulse Ox 97 Oxygen Delivery Method Room Air Positive well nourished and well developed General Appearance ED: well developed HEENT Reports normocephalic and head/scalp atraumatic HEENT Narrative: 2-3+ tonsils bilaterally. Uvula midline. No exudate. Patient tolerating secretions well and speaks with a strong voice. Eyes PERRL and EOMs intact bilaterally Neck supple Chest Wall inspection of chest normal and palpation of chest normal Resp normal respiratory effort and clear to auscultation bilaterally Cardio regular rate and regular rhythm GI normal to inspection, nondistended, normoactive bowel sounds Palpation: soft Extremity normal to inspection Neuro oriented x3 and no sensory deficits noted Sensorium / Orientation: alert Motor Exam: strength 5/5 throughout Psych mental status grossly normal Skin no rashes or lesions noted MDM MDM MDM Narrative Medical decision making narrative: Swab obtained for rapid strep test. Swab for COVID and influenza also ordered. Treatment and Re-Evaluation Narrative: Swabs for COVID, influenza, and strep all returned negative. Test results are discussed with the patient. At this point she is a viral pharyngitis. If her symptoms persist I do recommend she be retested in a couple days. Return instructions given. Discharge Plan Triage Chief Complaint: Sore Throat ED Provider: Jessica Sanon Dx/Rx/DC Orders Clinical Impression: Viral pharyngitis Instructions: ED Pharyngitis, Viral Prescriptions: No Action NK Primary Care Provider: Care Physician,No Primary Referrals: Harsh Mccarthy MD [Med Staff - Senior Specialist] - As Needed Care Physician,No Primary [Primary Care Provider] - Disposition Disposition: Home, Self Care
== END 2022-10-21 03:16 | disposition home or self-care (01) ==
PROVIDERS: Emergency Provider Emergency Medicine; Visit Provider Emergency Medicine
DX: J02.8 Acute pharyngitis due to other specified organisms (principal); B97.89 Other viral agents as the cause of diseases classified elsewhere; F17.210 Nicotine dependence, cigarettes, uncomplicated; K21.9 Gastro-esophageal reflux disease without esophagitis; F17.290 Nicotine dependence, other tobacco product, uncomplicated; J45.909 Unspecified asthma, uncomplicated
CPT/HCPCS: 87428; 87880; 99282

== ENCOUNTER 2022-11-01 02:39 | Emergency (ER) | payer SELFPAY ==
[2022-11-01 02:39] VITALS: BP 144/74; PULSE 95; RESP 16; TEMP 37.1; O2SAT 98; BMI 38.2
--- NOTE | 2022-11-01 02:54 | EDS_ITS ---
HPI HPI - URI History of Present Illness Chief Complaint: Sore Throat Narrative Narrative: 22-year-old female who denies significant past medical history except for the fact that she is an occasional smoker presents with sore throat, hoarse voice, that she has had for the last 2 to 3 weeks. She now developed left ear pain. She denies any fevers or chills. No exacerbating or alleviating factors. She has been taking hot teas and some gtvc-ytx-gltwyxt medications to help with her sore throat. She states that her throat hurts 24/7 and is also worse with swallowing. She has not followed up with her primary care provider. She denies any loss of hearing out of her left ear. ROS ROS ED ROS Narrative Constitutional: No fever, no chills. HEENT: Positive sore throat. No neck pain. No loss of vision. Positive nasal congestion and rhinorrhea. Left ear pain. No loss of hearing. Cardiovascular: No chest pain. No palpitations. No pedal edema. Respiratory: Occasional cough, no shortness of breath. Abdominal: No abdominal pain. No nausea. No vomiting. Genitourinary: No dysuria. No hematuria. Musculoskeletal: No myalgias. No arthralgias. Neurologic: No headaches. No dizziness. No lightheadedness. Skin: No rash. No change in color. Psychiatric: No depression. No anxiety. [facility] Medical History Anxiety Arthritis Asthma Bulging discs Degenerative disc disease Depression Deterioration of spinal disc of lower back GERD (gastroesophageal reflux disease) Kidney stones Migraines Home Medications NK 09/04/22 [History Last Taken Unknown] Allergy/AdvReac Type Severity Reaction Status Date / Time kiwi Allergy Angioedema Verified 10/21/22 02:13 pineapple Allergy Angioedema Verified 10/21/22 02:13 Social History Smoking Status: Current every day smoker tobacco type: cigarettes and e- cigarettes EXAM Physical Exam Narrative Exam Narrative: Afebrile. Vital signs noted. HEENT: Normocephalic. Atraumatic. PERRL, EOMI. Neck soft and supple. No point tenderness or step off. Left TM without erythema or bulging. Small amount of cerumen in canal. No mastoid tenderness or erythema, left. Airway patent. No drooling or trismus. Positive postnasal drip. Cardiovascular: Regular rate and rhythm. No murmurs, rubs, or gallops appreciated. Respiratory: No tachypnea. Lungs clear to auscultation bilaterally. Gastrointestinal: Abdomen soft, nontender, with normoactive bowel sounds. No rebound or guarding. Neurological: Awake. Alert. Nonfocal, nonlateralizing. Skin: No rash. Normal color. No pallor. Musculoskeletal: No pedal edema. Full range of motion extremities. Const Vital Signs: 11/01/22 02:39 Temperature 98.7 F Temperature Source Temporal Pulse Rate 95 Respiratory Rate 16 Blood Pressure 144/74 H Blood Pressure Mean 97 Pulse Ox 98 Oxygen Delivery Method Room Air MDM MDM MDM Narrative Medical decision making narrative: Smoking cessation was discussed. I reviewed the patient's prior outpatient record. She was here on the only 11 days ago when she was tested for COVID and influenza along with strep. All her swabs were negative at that time, but it was suggested that since her symptoms are persisting that she be reswabbed. She is given Decadron here because of the throat irritation. I do feel that she can take other lmzw-gjb-tlvbmry medications such as an antihistamine, or Mucinex to dry up the mucus. Her pulse ox is 98% on room air without evidence of hypoxia. Smoking cessation was discussed. I do not feel that a chest x-ray is indicated. Additionally, I do not feel antibiotics would be indicated unless her strep test is positive. I feel she can be discharged safely home with follow-up to her primary care physician. She was also referred to otolaryngology. In review of her swabs, COVID, influenza, and strep are all negative again. Disposition is discharged home in stable condition. Lab Data Attestation: I reviewed the patient's lab results. Discharge Plan Triage Chief Complaint: Sore Throat ED Provider: Luis Phan Dx/Rx/DC Orders Clinical Impression: URI (upper respiratory infection), Pharyngitis, Post-nasal drip Instructions: ED Pharyngitis, Viral, ED URI, Viral, No Abx (Adult) Prescriptions: No Action NK Primary Care Provider: Care Physician,No Primary Referrals: Ramana Santiago MD [Med Staff - Active Staff] - As Needed Care Physician,No Primary [Primary Care Provider] - Activity Restrictions/Additional Instructions: Take xftv-znc-lfedjsh medications such as Benadryl or loratadine, and you can take Mucinex also/guaifenesin. Follow-up with otolaryngology as needed. Stop smoking. Disposition Disposition: Home, Self Care
[2022-11-01] MEDS: dexAMETHasone 4 MG Tablet 8 MG PO (03:01)
[2022-11-01 04:06] VITALS: RESP 18
== END 2022-11-01 04:10 | disposition home or self-care (01) ==
PROVIDERS: Emergency Provider Emergency Medicine; Visit Provider Emergency Medicine
DX: J02.9 Acute pharyngitis, unspecified (principal); F17.210 Nicotine dependence, cigarettes, uncomplicated; J45.909 Unspecified asthma, uncomplicated; F17.290 Nicotine dependence, other tobacco product, uncomplicated
CPT/HCPCS: 87428; 87880; 99283

== ENCOUNTER 2022-11-09 03:21 | Emergency (ER) | payer SELFPAY ==
[2022-11-09 03:22] VITALS: PULSE 74; RESP 17; TEMP 36.7; O2SAT 97; BMI 38.0
[2022-11-09] MEDS: Ondansetron ODT 4 MG Tablet PO (04:10)
[2022-11-09] MEDS: Ketorolac 30 MG/ML Syringe IM (04:11)
[2022-11-09 04:56] LABS: Internal QC Validated? YES +Cl - CLEAR BKGD
[2022-11-09 04:57] LABS: Pregnancy, Urine Negative Negative
--- NOTE | 2022-11-09 05:15 | RAD_ITS ---
INDICATION: pain EXAMINATION/TECHNIQUE: X-RAY - XR Sacrum/Coccyx Min 2 Views: 3 image cervical spine COMPARISON: None. FINDINGS: SACRUM/COCCYX: No displaced fracture, destructive or sclerotic lesions. Note that overlapping bowel shadows partially obscure the inferior sacrum. SACRO-ILIAC JOINTS: The articular structures are unremarkable. SOFT TISSUES: No soft tissue swelling or gas. RAD/Sacrum-Coccyx min 2 Views IMPRESSION: No acute finding. Electronically Signed: Mohan Ferguson MD at 6:40 EST ,
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
== END 2022-11-09 06:57 | disposition home or self-care (01) ==
PROVIDERS: Emergency Provider Emergency Medicine; Visit Provider Emergency Medicine
DX: S30.0XXA Contusion of lower back and pelvis, initial encounter (principal); F17.210 Nicotine dependence, cigarettes, uncomplicated; E66.9 Obesity, unspecified; X58.XXXA Exposure to other specified factors, initial encounter
CPT/HCPCS: 72220; 81025; 96372; 99283